=== PATIENT | male | born 1960 | race Caucasian/White ===

== ENCOUNTER 2017-03-19 08:59 | Observation (INO) | payer OTHER ==
[~2017-03-19] VITALS: Ht 198.1 cm; Wt 104.3 kg
[2017-03-19] VITALS (15 sets, daily range): BP systolic 112–129; BP diastolic 61–77
[2017-03-19] MEDS ORDERED: OMEPRAZOLE40 MG PO (09:23)
[2017-03-19] MEDS ORDERED: AMBIEN 5 MG TABL5 M1 PO (09:25)
[2017-03-19] MEDS ORDERED: ASPIR 8181 MG PO (09:59)
[2017-03-19 10:05] LABS: HEMATOCRIT 39.3 % (42.0-52.0); HEMOGLOBIN 12.9 gm/dL (14.0-18.0); MCH 29.6 pg (26.0-34.0); MCHC 32.9 g/dL (28.0-37.0); MCV 89.8 fL (80.0-100.0); MPV 7.4 fl. (7.2-11.1); RBC 4.38 mil/uL (4.50-6.00); RDW-CV 13.2 % (10.5-14.5); WBC 5.3 thou/uL (4.0-11.0)
[2017-03-19 10:10] LABS: ANION GAP 6 mmol/L (7-16); BUN 15 mg/dL (7-18); CALCIUM 8.4 mg/dL (8.5-10.1); CHLORIDE 108 mmol/L (98-107); CO2 31 mmol/L (21-32); CREATININE 0.9 mg/dL (0.6-1.3); GLUCOSE 91 mg/dL (70-99); POTASSIUM 3.9 mmol/L (3.5-5.1); SODIUM 145 mmol/L (136-145)
[2017-03-19 10:16] LABS: ALBUMIN 3.5 g/dL (3.4-5.0); ALKALINE PHOSPHATASE 59 U/L (46-116); CHOLESTEROL 165 mg/dL (<200); HDL CHOLESTEROL 47 mg/dL (>40); LDL CHOLESTEROL 105 mg/dL (<100); SGOT 18 U/L (15-37); SGPT 23 U/L (30-65); TC:HDL 3.5 Ratio (Not establshd); TOTAL BILIRUBIN 1.4 mg/dL (<0.1-1.0); TOTAL PROTEIN 6.5 g/dL (6.4-8.2); TRIGLYCERIDE 65 mg/dL (<150); VLDL 13 mg/dL (<40)
[2017-03-19 10:17] LABS: SERUM ASSESSMENT Clear
[2017-03-19 10:18] LABS: APTT 26.9 Seconds (25.0-31.3); PROTIME 10.2 Seconds (9.20-11.50)
--- NOTE | 2017-03-19 11:30 | EKG ---
[place] [address] ELECTROCARDIOGRAM REPORT Name: INDER CHARLES Room: [facility]#: [id number] Admission: 03/19/17 Attend Phys: Mika Tineo MD Discharge: Date of : 60 Report #: [id number] THIS REPORT FOR: //name// [facility] Test Date: 2017-03-19 Test Time: 10:08:37 Pat Name: INDER MARINLIVAN Department: Room: Gender: M Multimedia Coordinator: : 1960 Requested By: Mika Tineo Order Number: [id number] Reading MD: Mika Tineo Measurements Intervals [place] Rate: 60 P: -26 TX: 160 QRS: 31 QRSD: 92 T: 24 QT: 407 QTc: 407 Interpretive Statements Sinus rhythm Abnormal R-wave progression, early transition Compared to ECG 04/09/2009 08:40:00 No significant changes Electronically Signed On 03-19-2017 11:29:57 POURED CONCRETE WALL TECHNICIAN by Mika Tineo [email or web address] <ELECTRONICALLY SIGNED> By: Mika Tineo MD, [facility] 03/19/17 1129 1008 1008 Mika Tineo MD, [facility] /EPI
--- NOTE | 2017-03-19 14:00 | NUR ---
VSS, ASSUMED CARE IN THE AM, ASSESSMENT PERFORMED AND CHARTED, FALL PRECAUTIONS IN PLACE AND CALL LIGHT IN REACH, PT IS TRACING SR ON THE MONITOR AND IS ON BED RESY POST CATH UNTIL 1730, PT IS A&O4 AND SAO2 IS 100% ON RA, PT DENIES ANY PAIN AND CATH SITE IS C/D/I AND HAS NO HEMOTOMA NOTED, WILL FOLOW WITH PLAN OF CARE AND HOURLY ROUNDS.
--- NOTE | 2017-03-19 16:53 | CARD ---
[address] [address] CARDIAC CATH REPORT Name: ARACELIINDER Room: [address] IN [facility].#: [id number] Admission: 03/19/17 Attend Phys: Mika Tineo MD Discharge: Date of : 60 Report #: [id number] THIS REPORT FOR: //name// APPROVED REPORT Patient Details Patient Status: Out-Patient Room #: 210 The patient is a 56 year-old male Event Personnel Mika Tineo Information Writer, Di Arguelles RN RN, Zachary Luz, Gertrude Mireles RTR Monitor, Chon Munoz Puzzle Assembler Procedures Performed Art Access - R radial artery Art Access - R femoral artery* Left Heart Cath w/LT VGram [id number] [facility]CLV JODY Place w/wo Plasty Single LAD [id number] Hemostasis w/ Angioseal Indication Atypical chest pain , Positive stress test Admission/Lab Medications/Medications given during procedure Heparin Unfract. Procedure Narrative The patient was brought electively to the Cardiac Catheterization Laboratory and was prepped and draped in a sterile manner. The right femoral was infiltrated with 1% Lidocaine subcutaneous anesthesia. A Val[place]alla 6 FR sheath was inserted into the right femoral artery. Coronary angiography was performed using coronary diagnostic catheters. The right coronary system was accessed and visualized with a JR4 6fr catheter. The left coronary system was accessed and visualized with a JL4 6fr catheter. The left ventricle was accessed and visualized with a PC: Pig 6fr catheter. Left ventricular/Aortic Valve gradient assessed via catheter pullback. Left ventriculogram was performed in CHONG projection. Closure device was deployed with a 6 Fr Angioseal STS 6Fr. The patient tolerated the procedure well and there were no complications associated with the procedure. Procedure attempted from the right radial artery, but abandoned because of tortuosity of the inominate artery. Vascband placed after the sheath removed. Intraoperative Conscious Sedation Sedation start time: 10:32 Case end Time: [place] [address] CARDIAC CATH REPORT Name: INDER CHARLES Room: [address]#: [id number] Admission: 03/19/17 Attend Phys: Mika Tineo MD Discharge: Date of : 60 Report #: [id number] 11:44 Fentanyl 50 mcg Versed 4 mg Fluoro Time: 16.5 minutes Dose: DAP 74482 cGycm2 1528.36 mGy Contrast Type and Amount: Omnipaque 160 ml Coronary Angiography The patient's coronary anatomy is right dominant. Diagnostic Cath Left Main normal LAD proximal 70% focal stenosis, normal distally Diagonal 1 normal Circumflex proximal 40% stenosis OM1 normal OM2 normal Right Coronary proximal 35-40% R PDA normal RPLV normal Left Ventriculography The left ventricle is normal in size with normal contractility. The left ventricular ejection fraction is estimated to be >55%. Left ventricular wall motion abnormalities are not present. There is no mitral insufficiency. Hemodynamics The aortic pressure is 100/61 mmHg with a mean of mmHg. The left ventricular pressure is 107/2 mmHg with a mean of mmHg. The left ventricular end diastolic pressure is 16 mmHg. There was no gradient across the aortic valve upon pullback. Pullback from the left ventricle to the aorta revealed no gradient across the aortic valve. PCI Technique Lesion Anticoagulation was achieved with Heparin. Patient was preloaded with Brillinta. Percutaneous coronary intervention was performed on the proximal left anterior descending artery segment. The lesion stenosis prior to intervention was 70% with SELAM 3 flow. A 6F XB LAD 3.5 Guide Catheter was used to engage the LCA ostium. A IG: BMW 190cm Interventional Guidewire was used to cross the lesion. STENT DEPLOYMENT A drug-eluting stent Xience Alpine RX 3.5X12 was inserted and inflated up to 9.00atm for 13seconds. Additional Inflation: 10.00atm [place] [address] CARDIAC CATH REPORT Name: INDER CHARLES Room: [address] [place] ..#: [id number] Admission: 03/19/17 Attend Phys: Mika Tineo MD Discharge: Date of : 60 Report #: [id number] for 6seconds. Additional Inflation: 11.00atm for 20seconds. Final angiography reveals 0 % stenosis with SELAM 3 flow. COMMENTS 70% discrete stenosis noted in the lad after the first septal consumer loan officer and at the takeoff of a small second diagonal branch. Conclusion 1. angina 2. abnormal cardiac stress test 3. 70% proximal left anterior descending coronary stenosis 4. moderate disease RCA, LCx 5. successfula placement of a singel drug eluting stent in the lad Recommendations Cardiac Rehabilitation Referral Aggressive Medical Therapy PCI Medications Administered Ticagrelor Diagnostic Cath Approved by: Mika Tineo MD Date/Time: <ELECTRONICALLY SIGNED> By: Chon Munoz MD, [facility] 03/19/17 165 52 [id number] Munoz MD, FAC /INF
--- NOTE | 2017-03-19 19:45 | NUR ---
VSS, PT IS PROGRRESSING TOWARDS GOAL, PT IS SR ON THE MONITOR AND IS NOW OFF BEDREST AND IS UP AD GLADYS, RIGHT FRION SITE HAS SOME DRY BLOOD ON THE GAUZE, NO HEMOTOMA NOTED, PT DENIES ANY PAIN AND HOURLY ROUNDS COMPLETED.
[2017-03-20] VITALS: BP 134/69; BP 145/63
[2017-03-20 04:00] VITALS: BP 114/78; BP 146/77
--- NOTE | 2017-03-20 04:35 | NUR ---
ASSUMED PT CARE AT 1930, PT IS A&OX4, PT DENIES ANY PAIN OR NEEDS AT THIS TIME. PT IS TRACING NSR ON THE MONITOR, ON RA SATTING MID TO HIGH 90'S. PT HAS IVF INFUSING AT THIS TIME. PT IS UP AD GLADYS IN HIS ROOM AND IS STABLE ON HIS FEET. PT HAS A CATH ON 03-19-27. INSERTION SITE THROUGH RIGHT WRIST WELL RIGHT GROIN. CATH SITES ARE CLEAN DRY AND INTACT. BED IN LOW POSITION, CALL LIGHT IN REACH, HOURLY ROUNDING COMPLETED FOR PT SAFETY.
[2017-03-20 05:19] LABS: HEMATOCRIT 37.6 % (42.0-52.0); HEMOGLOBIN 12.7 gm/dL (14.0-18.0); MCH 30.2 pg (26.0-34.0); MCHC 33.9 g/dL (28.0-37.0); MPV 7.6 fl. (7.2-11.1); RBC 4.22 mil/uL (4.50-6.00); RDW-CV 13.2 % (10.5-14.5); WBC 8.6 thou/uL (4.0-11.0)
[2017-03-20 08:00] VITALS: BP 123/75
--- NOTE | 2017-03-20 10:23 | NUR ---
VSS, ASSUMED CARE IN THE AM, ASSESSMENT PERFOREMED AND CHARTED, FALL PRECAUTIONS IN PLACE AND CALL LIGHT IN REACH, PT IS A&O4 AND UP AD GLADYS,ON RA AND TRACING SR ON THE MONITOR, PT DENIES ANY PAIN, GRION CATH SITE AND RIGHT WRIST SITES LOOK GOOD AND NO HEMOTOMA NOTIED AT THIS TIME, PT GOAL IS TO D/C TO HOME ON DAY OF CARE.
[2017-03-20] MEDS ORDERED: BRILINTA90 MG PO (10:44)
[2017-03-20] MEDS ORDERED: LIPITOR 20 MG T20 M1 PO (10:46)
[2017-03-20 11:28] VITALS: BP 114/77
--- NOTE | 2017-03-20 11:55 | EKG ---
[place] [address] ELECTROCARDIOGRAM REPORT Name: INDER CHARLES Room: [address] M.R.#: [id number] Admission: 03/19/17 Attend Phys: Mika Tineo MD Discharge: Date of : 60 Report #: [id number] THIS REPORT FOR: //name// [facility] Test Date: 2017-03-19 Test Time: 13:09:02 Pat Name: INDER CHARLES Department: Room: [address] Gender: M Thread Weaver: : 1960 Requested By: Mika Tineo Order Number: [id number] Reading MD: Chon Munoz Measurements Intervals [place] Rate: 59 P: 49 NM: 160 QRS: 3 QRSD: 102 T: 13 QT: 420 QTc: 416 Interpretive Statements Sinus rhythm Abnormal R-wave progression, early transition Compared to ECG 03/19/2017 10:08:37 No significant changes Electronically Signed On 03-20-2017 11:55:34 ANTENNA ENGINEER by Chon Munoz [email or web address] <ELECTRONICALLY SIGNED> By: Chon Munoz MD, [facility] 03/20/17 1155 1309 1309 Chon Munoz MD, [facility] /EPI
--- NOTE | 2017-03-20 12:14 | EKG ---
[place] [address] ELECTROCARDIOGRAM REPORT Name: INDER CHARLES Room: [address] M.R.#: [id number] Admission: 03/19/17 Attend Phys: Mika Tineo MD Discharge: Date of : 60 Report #: [id number] THIS REPORT FOR: //name// [facility] Test Date: 2017-03-20 Test Time: 08:45:32 Pat Name: INDER CHARLES Department: Room: [address] Gender: M Curing Oven Tender: : 1960 Requested By: Mika Tineo Order Number: [id number] Reading MD: Chon Munoz Measurements Intervals [place] Rate: 67 P: 61 HI: 144 QRS: 18 QRSD: 98 T: 41 QT: 388 QTc: 410 Interpretive Statements Sinus rhythm Abnormal R-wave progression, early transition Compared to ECG 03/19/2017 10:08:37 No significant changes Electronically Signed On 03-20-2017 12:14:52 WEIGHT SHIFTER by Chon Munoz [email or web address] <ELECTRONICALLY SIGNED> By: Chon Munoz MD, [facility] 03/20/17 1214 0845 0845 Chon Munoz MD, [facility] /EPI
--- NOTE | 2017-03-20 12:21 | NUR ---
VSS, RECIVED D/C ORDERS FILLED OUT D/C PAPAER, AND PROVITED SCRIPTS AND MEDICATION SHEETS AND GAVE D/C INSTRUCTIONS, TOOK OUT IV ABD TELE MONIOTR, HOURLY ROUNDS COMPLETED, NPT DENIES ANY QUESTIONS OR CONERNS AT THIS TIME,PT WALKED OUT BY ME TO CAR
--- NOTE | 2017-03-21 13:28 | D ---
[address] [address] DISCHARGE SUMMARY Name: CHARLESINDER TIRADO Room: [address] [place]#: [id number] Admission: 03/19/17 Attend Phys: Mika Tineo MD Discharge: 03/20/17 Date of : 60 Report #: [id number] THIS REPORT FOR: //name// CC: Mika Reese DO DATE OF SERVICE: 03/20/2017 DISCHARGE DIAGNOSES: 1. Angina pectoris. 2. Coronary artery disease. 3. Hyperlipidemia. 4. Dyspepsia. CONSULTANTS: None. PROCEDURES: Left heart catheterization with placement of a single drug-eluting stent in the left anterior descending artery via the femoral approach PRIMARY CARE PHYSICIAN: Morris Reese DO. 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 The patient has no history of heart disease. Recently, he complained of intermittent pain in his chest that did not last very long. It is not related to exertion or meals. He had been tried with antacids in the past. However, he continued to have the sharp pain in his chest. No associated shortness of breath, diaphoresis. He has had no fever, cough, blood in stool. Denied exertional dyspnea or syncope. He was seen by my partner, Dr. Mika Tineo. He underwent a stress echocardiogram in my office. He had a peak heart rate of 176. He walked for 10 minutes. The images showed no wall motion abnormalities. However, he developed 2.[address] segment depression consistent with ischemia. Dr. Tineo recommended cardiac catheterization. This was performed on the first hospital day as an outpatient. Results: He was noted to have a 70% stenosis of the mid left anterior descending artery. There was no significant disease in the circumflex or right coronary artery. Ejection fraction 65%. He was felt to have significant coronary artery disease. He was then given heparin and loaded with Brilinta. I then placed a single drug-eluting stent in the mid LAD. An Angio-Seal was placed. He tolerated the procedure well. He has had no further chest pain, arrhythmias or angina. Prior to discharge, he was ambulating, had no further complaints. Followup ECG showed a sinus rhythm. The patient was discharged to continue his home medications included aspirin 81 mg a day, omeprazole 40 mg a day. He was started on Brilinta 90 mg twice a day and Lipitor 40 mg a day, and he was given nitroglycerin to take as needed for chest pain[place] [address] DISCHARGE SUMMARY Name: INDER CHARLES Room: [address] J[place]e#: [id number] Admission: 03/19/17 Attend Phys: Mika Tineo MD Discharge: 03/20/17 Date of : 60 Report #: [id number] a sodium 145, creatinine 0.9, glucose 91. Liver function studies were normal. Cholesterol 165, triglyceride 65, HDL 47, LDL 105. White blood cell count 5.3, hemoglobin 12.9. He was discharged to return to care of Dr. Reese for routine medical care. He is not to do any heavy lifting for the next 2 days. However, it was felt safe to return to work on 03/23. He is felt to have a good prognosis from cardiac standpoint. He is scheduled to return to see my nurse practitioner, Kiley, on 04/14. He continues to see Dr. Tineo in the Cardiology Clinic for followup. He was to contact my office if he had any bleeding, chest pain or shortness of breath. <ELECTRONICALLY SIGNED> By: Chon Munoz MD, [facility] 03/21/17 1328 1052 1209Daisac Munoz MD, FACC /nt
--- NOTE | 2017-04-08 08:46 | CON ---
[address] [address] CONSULTATION Name: INDER CHARLES Room: [address] [place]#: [id number] Admission: 03/19/17 Attend Phys: Mika Tineo MD Discharge: 03/20/17 Date of : 60 Report #: [id number] THIS REPORT FOR: //name// CC: Mika Reese PRIMARY CARE PHYSICIAN: Dr. Morris Reese. CHIEF COMPLAINT: Chest pain. HISTORY OF PRESENT ILLNESS: The patient is a 56-year-old man with history of chest pain. He was evaluated with abnormal stress echocardiogram. He had been having chest pain associated with a central nonradiating chest pain, which was nonexertional. There are no changes after meals. PAST MEDICAL HISTORY: Significant for chronic insomnia, GERD, palpitations. PAST SURGICAL HISTORY: No recent surgeries. FAMILY HISTORY: Negative. ALLERGIES: PENICILLIN. REVIEW OF SYSTEMS: CONSTITUTIONAL: Negative. HEENT: Negative for nosebleeds. GASTROINTESTINAL: No bleeding, hematemesis or melena. CARDIOVASCULAR: Positive chest pain, positive dyspnea with exertion. No orthopnea, no palpitations. SKIN: No rashes. PULMONARY: No wheezing or cough. NEUROLOGIC: Denies slurred speech, numbness or visual changes. PHYSICAL EXAMINATION: VITAL SIGNS: Blood pressure 116/70. He is 6 feet 6 inches tall, weighs 235 pounds. GENERAL: This is a thin male in no apparent distress. HEENT: Eyes are intact. No facial asymmetry. NECK: Supple. There is no jugular venous distention. CARDIOVASCULAR: Regular. I cannot hear a murmur. LUNGS: Clear to auscultation. ABDOMEN: Soft, nontender. EXTREMITIES: No peripheral edema. LABORATORY DATA: Pending. [address] [address] CONSULTATION Name: INDER CHARLES Room: [address]#: [id number] Admission: 03/19/17 Attend Phys: Mika Tineo MD Discharge: 03/20/17 Date of : 60 Report #: [id number] IMPRESSION: 1. Chest pain. 2. Abnormal stress echocardiogram. 3. Palpitations. PLAN: At this point in time, given his abnormal stress test, a cardiac catheterization was recommended. Risks and benefits of the procedure described to the patient in lay terms. The patient elects to proceed. <ELECTRONICALLY SIGNED> By: Mika Tineo MD, [facility] 04/08/17 0846 1241 1856Mika Tineo MD, [facility]ACC /nt
== END 2017-03-20 12:30 | disposition home or self-care (01) ==
LOC: M.CL 08:59 → M.2W 12:13
PROVIDERS: ADMIT Internal Medicine Cardiovascular Disease
DX: I25.119 Atherosclerotic heart disease of native coronary artery with unspecified angina pectoris (principal); E78.5 Hyperlipidemia, unspecified; R10.13 Epigastric pain

== ENCOUNTER → 2017-07-27 | Outpatient (CLI) | payer OTHER ==
[~2017-07-27] MED LIST: AMBIEN 5 MG TABL5 M1 PO; ASPIR 8181 MG PO; BRILINTA90 MG PO; LIPITOR 20 MG T20 M1 PO; NORCO 5-325 TA1 EACH PO; OMEPRAZOLE40 MG PO
== END ==
LOC: M.ULTRA 07:41
DX: K76.89 Other specified diseases of liver (principal)

== ENCOUNTER 2017-10-24 23:39 | Emergency (ER) | payer OTHER ==
[~2017-10-24] VITALS: Ht 198.1 cm; Wt 104.3 kg
[~2017-10-24 23:39] MED LIST changes: -NORCO 5-325 TA1 EACH PO
[2017-10-25] MEDS ORDERED: NORCO 5-325 TA1 EACH PO ×2 (00:25→22:59)
[2017-10-25 00:37] VITALS: BP 118/68
== END 2017-10-25 00:38 | disposition home or self-care (01) ==
LOC: M.ERS 23:39
DX: M79.675 Pain in left toe(s) (principal); Z88.0 Allergy status to penicillin

== ENCOUNTER 2017-10-25 21:43 | Emergency (ER) | payer OTHER ==
[~2017-10-25] VITALS: Ht 198.1 cm; Wt 104.3 kg
[~2017-10-25 21:43] MED LIST changes: +NORCO 5-325 TA1 EACH PO
[2017-10-25] MEDS ORDERED: NORCO 5-325 TA1 EACH PO (22:59)
[2017-10-25 23:03] VITALS: BP 124/66
== END 2017-10-25 23:03 | disposition home or self-care (01) ==
LOC: M.ERS 21:43
DX: S92.511D Displaced fracture of proximal phalanx of right lesser toe(s), subsequent encounter for fracture with routine healing (principal); K21.9 Gastro-esophageal reflux disease without esophagitis; Z95.5 Presence of coronary angioplasty implant and graft; Z88.0 Allergy status to penicillin; X58.XXXD Exposure to other specified factors, subsequent encounter